=== PATIENT | male | born 1955 | race African-American/Black ===

== ENCOUNTER 2018-06-17 05:55 | Day surgery (SDC) | payer OTHER ==
[2018-06-13 18:03] VITALS: BMI 40.4
[2018-06-17] MEDS ORDERED: THROMBIN (BOVINE) 5,000 UNIT VIAL TP ONE ×2 (07:01→08:43)
[2018-06-17] MEDS ORDERED: methylPREDNISolone ACET (DEPO) 40 MG/1 ML VIAL ONE (07:01)
[2018-06-17] MEDS ORDERED: LIDOCAINE 1%/EPI 1:100000 (20 ML MULTI DOSE VIAL) ONE (07:01)
[2018-06-17] MEDS ORDERED: DEXAMETHASONE SOD PHOSPHATE/PF 10 MG/ML SDV ONE (07:41)
[2018-06-17] MEDS ORDERED: MIDAZOLAM HCL 2 MG/2 ML SINGLE DOSE VIAL ONE (07:42)
[2018-06-17] MEDS ORDERED: BUPIVACAINE HCL/PF (5 MG/ML) 30 ML VIAL IJ ONE (07:42)
--- NOTE | 2018-06-17 07:43 | HP ---
History & Physical Update - History History: No Change - Physical Physical: No Change - Assessment Assessment: No Change - Plan Plan: No Change (H&P in chart from 05/29/2018 with medical clearnace.)
--- NOTE | 2018-06-17 07:47 | OP ---
Operative Note - Note: Operative Date: 06/17/18 Pre-Operative Diagnosis: lumbar stenosis Operation: laminectomy of L3-L4 and L4-L5 Surgeon: Oseas Houser Station Engineer Chief: Paris Sabillon Anesthesiologist/[employer] OPERATOR: Ron Monroe Anesthesia: Spinal Estimated Blood Loss (mls): 30 Fluid Volume Replaced (mls): 1,000 Operative Report Dictated: Yes
[2018-06-17] MEDS ORDERED: LIDOCAINE 1%/EPI 1:100000 (50 ML MULTI DOSE VIAL) INF ONE (08:20)
[2018-06-17] MEDS ORDERED: GELATIN SPONGE,ABSORBABLE 1 GM PACKET TP ONE (08:43)
[2018-06-17] MEDS ORDERED: methylPREDNISolone ACET (DEPO) 40 MG/1 ML VIAL IM ONE (09:33)
--- NOTE | 2018-06-17 10:08 | SURG ---
Surgery Clinical Review Nurse Note Clinical Review Nurse: Paris Sabillon PA-C Date of Service: 06/17/18 Diagnosis: spinal stenosis Procedure: laminectomy of L3-L4 and L4-L5 I was present for the entirety of the operative procedure. For further detail, please refer to operative report. Visit type - Case Type Case Type: Scheduled - New patient This patient is new to me today: Yes Date on this admission: 06/17/18
[2018-06-17] MEDS ORDERED: ALBUTEROL SO4 8 GM HFA INHALER IH PRN (11:11)
[2018-06-17 11:35] VITALS: TEMP 98.2
[2018-06-17] MEDS ORDERED: oxyCODONE HCL 5 MG TABLET ONE (11:46)
[2018-06-17] MEDS ORDERED: oxyCODONE HCL 5 MG TABLET PO PRN ×2 (11:52)
[2018-06-17] MEDS ORDERED: ONDANSETRON 4 MG/2 ML VIAL IVPUSH PRN (11:52)
[2018-06-17] MEDS ORDERED: LACTATED RINGERS SOLUTION 1,000 ML IV SCH (12:00)
[2018-06-17 13:12] VITALS: BP 130/66; PULSE 72
--- NOTE | 2018-06-17 19:14 | OP ---
DATE OF OPERATION: 06/17/2018 PREOPERATIVE DIAGNOSIS: Spinal stenosis L3-L4, L4-L5. POSTOPERATIVE DIAGNOSIS: Spinal stenosis L3-L4, L4-L5. PROCEDURE PERFORMED: Laminectomy L3-L4 and L4-L5. SURGEON: Oseas Houser MD MANAGER SOLUTION: CLARICE Jorge ESTIMATED BLOOD LOSS: 50 mL. INTRAVENOUS FLUIDS: Per anesthesia. COMPLICATIONS: None. DISPOSITION: Patient was brought to the PACU in stable condition. ANESTHESIA: Spinal/TLIF. INDICATIONS FOR SURGERY: The patient is a 62-year-old gentleman who has been suffering from pain from his back down his legs. X-rays and MRI were completed, which noted that he has spinal stenosis from L3 down to L5. He had gone through an exhaustive course of treatment, which included medications, physical therapy, as well as injections. Unfortunately, his pain continued to persist despite all of this. At this point, the risks, benefits, and alternatives were discussed and the patient consented to surgery. OPERATIVE NOTE: The patient was brought to the operating room by the anesthesia staff. After appropriate patient identification was performed, spinal anesthesia was given. Appropriate anesthetic lines were placed. SCDs were placed on the patient. The patient was able to position himself prone onto the Parrish frame. All areas of the bony prominences were well-padded at this time. Two needles were placed into his back to off the L3-L5 segments. X-rays were taken to confirm and needles were removed. Then, 10 mL of lidocaine with epinephrine was injected into the back. His back was prepped and draped in the sterile manner. At this point in time a timeout was completed. An incision was made from the top of L3 to the bottom of L5. Dissection was carried through to the underlying fascia. The fascia was opened at this time and appropriate retractors were then placed in. A spinal needle was placed onto the L4 lamina to off the L4-L5 level. X-rays were taken to confirm this was correct and the needle was removed. The microscope was brought in. The intraspinal ligament of L4-L5 and L3-L4 was removed. The spinal process of L4 was removed. A bur was used to smooth the lamina of the L4. A complete decompression was performed such that by the end of the procedure the L4 and L5 nerve roots appeared to be well decompressed. All of the bleeding was well controlled at this time. Steroid was placed over the nerve root. FloSeal was placed over that. The fascia was closed with a number 1 running Vicryl suture. Subcutaneous tissues were closed with 2-0 Vicryl sutures. Skin was closed with 3-0 Monocryl suture. Tegaderm was applied. Steri-Strips were applied. Sterile dressing was applied. Patient was placed supine on the hospital bed and brought to the PACU in stable condition. Charlotte LOPEZ/[id number]
== END 2018-06-17 12:45 | disposition home or self-care (01) ==
LOC: FASU 05:55
PROVIDERS: ATTEND Orthopaedic Surgery Orthopaedic Surgery of the Spine
PROC: 01NB0ZZ Release Lumbar Nerve, Open Approach (ICD-10-PCS; principal; 2018-06-17 08:15)
DX: M48.061 Spinal stenosis, lumbar region without neurogenic claudication (principal)
CPT/HCPCS: 72100-TC-FY; 76000-TC-FY; 94760